=== PATIENT | female | born 1960 | race Caucasian/White ===

== ENCOUNTER 2020-07-03 12:23 | Emergency (ER) | payer OTHER ==
[2020-07-03] MEDS ORDERED: Ketorolac 30 MG/ML SDV IM ONE (13:13)
[2020-07-03] MEDS ORDERED: Cyclobenzaprine 10 MG Tab PO ONE (13:13)
--- NOTE | 2020-07-03 13:15 | EDM.PDOC ---
ED HPI GENERAL MEDICAL PROBLEM - General Chief Complaint: Lower Extremity Injury/Pain Stated Complaint: PAIN IN RT HIP AND LEG Time Seen by Provider: 07/03/20 13:00 Source of Information: Reports: Patient, Family, RN Notes Reviewed History Limitations: Reports: No Limitations - History of Present Illness INITIAL COMMENTS - FREE TEXT/NARRATIVE: 60-year-old female presents emergency department with a complaint of right hip pain, she states the pain is really gotten worse over the last 24 hours she is purification spent a 4-hour car ride was evaluated in the urgent care yesterday treated with anti-inflammatories x-rays of the low back and hip were done showing no acute process to do show moderate amount of arthritis. She states she has been using Tylenol and Aleve with minimal relief as well as the Voltaren point right hip Pain Score (Numeric/FACES): 7 - Related Data Allergies Allergy/AdvReac Type Severity Reaction Status Date / Time Penicillins Allergy Hives Verified 07/03/20 12:43 Home Meds: Home Meds Acetaminophen [Acetaminophen ER] 650 mg PO QID 07/03/20 [History] Citalopram [Citalopram HBr] 20 mg PO DAILY 07/03/20 [History] Diclofenac Sodium [Voltaren Arthritis Pain] 20 gm TP ASDIRECTED 07/03/20 [History] Ibuprofen 800 mg PO TID 07/03/20 [History] Umeclidinium Garrison [Incruse Ellipta*] 62.5 mcg IH DAILY 07/03/20 [History] lisinopriL [Lisinopril] 10 mg PO DAILY 07/03/20 [History] Past Medical History HEENT History: Reports: Impaired Vision - Past Surgical History Female Surgical History: Reports: Hysterectomy Social & Family History - Tobacco Use Tobacco Use Status *Q: Never Tobacco User - Recreational Drug Use Recreational Drug Use: No Review of Systems - Review of Systems Review Of Systems: See Below Musculoskeletal: Reports: Foot Pain (Right hip pain) Neurological: Reports: No Symptoms ED EXAM, GENERAL - Physical Exam Exam: See Below Free Text/Narrative:: Examination of the right hip I do get pain and tenderness with both internal and external rotation not a lot of tenderness with flexion extension on a straight leg test she complains of pain in the hip area nothing in the foot Exam Limited By: No Limitations General Appearance: Alert, WD/WN, No Apparent Distress Course - Vital Signs Last Recorded V/S: Last Vital Signs Temp 97.9 F 07/03/20 12:48 Pulse 69 07/03/20 12:48 Resp 16 07/03/20 12:48 BP 144/91 H 07/03/20 12:48 Pulse Ox 96 07/03/20 12:48 - Orders/Labs/Meds Meds: Medications Discontinued Medications Generic Name Dose Route Start Last Admin Trade Name John Paul PRN Reason Stop Dose Admin Cyclobenzaprine HCl 10 mg 07/03/20 13:13 07/03/20 13:29 Cyclobenzaprine 10 Mg Tab PO 07/03/20 13:14 10 mg ONETIME ONE Administration Ketorolac Tromethamine 30 mg 07/03/20 13:13 07/03/20 13:29 Ketorolac 30 Mg/Ml Sdv IM 07/03/20 13:14 30 mg ONETIME ONE Administration Departure - Departure Time of Disposition: 13:53 Disposition: Home, Self-Care 01 Condition: Fair Clinical Impression: Right hip pain, [place] - Discharge Information Instructions: Hip Pain Referrals: PCP,None [Primary Care Provider] - Forms: ED Department Discharge Additional Instructions: Continue to use the Toradol as needed for pain control try not to use this in combination with other anti-inflammatory such as Motrin or Aleve naproxen, use the Flexeril as needed for pain relief, please follow-up with your primary care provider upon return home Sepsis Event Note (ED) - Evaluation Sepsis Screening Result: No Definite Risk - Focused Exam Vital Signs: Vital Signs Temp Pulse Resp BP Pulse Ox 07/03/20 12:48 97.9 F 69 16 144/91 H 96 07/03/20 12:42 97.9 F 69 16 144/91 H 96 - Assessment/Plan Plan: Assessment Acuity = acute Site and laterality = right hip pain Etiology = probable osteoarthritis Manifestations = none Location of injury = Home Lab values = none Plan Good improvement with Toradol and Flexeril provided in the emergency department follow-up primary care upon return home prescription written for Toradol 10 mg 1 tab p.o. every 6 hours as needed total #20 and Flexeril 1 tab p.o. 3 times daily as needed total #15 This note was dictated using [employer] voice recognition software please call with any questions on syntax or grammar.
== END 2020-07-03 14:14 | disposition home or self-care (01) ==
LOC: JP.ED 12:23
DX: M25.551 Pain in right hip (principal); Z90.710 Acquired absence of both cervix and uterus; Z88.0 Allergy status to penicillin; Z79.899 Other long term (current) drug therapy
CPT/HCPCS: 96372; 99283; A9270; J1885